=== PATIENT | female | born 1970 | race Caucasian/White ===

== ENCOUNTER 2016-12-26 10:57 | Emergency (ER) | payer MEDICAID, OTHER ==
[~2016-12-26] VITALS: Ht 170.2 cm; Wt 109.0 kg
[~2016-12-26 10:57] MED LIST: METFORMIN; PRAVASTATIN
[2016-12-26 11:11] VITALS: Ht 170.2 cm; Wt 109.0 kg
[2016-12-26] MEDS ORDERED: KETOROLAC 60 MG INJ IM STA (11:43)
--- NOTE | 2016-12-26 13:30 | RADRPT ---
PROCEDURE: Chest x-ray CLINICAL INDICATION: Back pain TECHNIQUE: Chest single view COMPARISON: None FINDINGS: The heart is normal in size. The pulmonary vessels are normal in caliber. The lungs are clear. Th e costophrenic angles are sharp. The visualized bony thorax is unremarkable. IMPRESSION: No acute cardiopulmonary disease. RPTAT: HH .Dexter Amaro MD, Date Time Electronically viewed and signed by .Dexter Amaro MD, MD on 12/26/2016 13:30 .W/
[2016-12-26] MEDS ORDERED: SOD CHLORIDE 0.9% 1,000 ML IV STA (13:35)
[2016-12-26] MEDS ORDERED: SOD CHLORIDE 0.9% 1,000 ML IV ONE (16:00)
[2016-12-26] MEDS ORDERED: INSULIN LISPRO 100 UNIT/ML VIAL SC STA (17:34)
[2016-12-26] MEDS ORDERED: NAPR-260 PO (17:39)
[2016-12-26] MEDS ORDERED: CYCL-319 PO (17:39)
--- NOTE | 2016-12-26 17:53 | ERD ---
ER Documentation Chief Complaint Chief Complaint upper back pain x 2 years HPI 46 year old patient reports that she has been diagnosed with tendinitis and diabetes presents to the ED complaining of left upper back pain that started intermittently for the past 3 years. States that he has worse in the last 15 days. States that she has tried taking tramadol without relief of her symptoms. Reports that she does not take metformin every day. Denies any dysuria, urgency, frequency, nausea, vomiting, abdominal pain, chest pain, shortness of breath, polyuria, polydipsia. States that she has had a previous cholecystectomy and thyroidectomy. ROS All systems reviewed and are negative except as per history of present illness. Medications Home Meds Active Scripts Cyclobenzaprine Hcl* (Cyclobenzaprine Hcl*) 10 Mg Tablet, 10 MG PO TID, #12 TAB Prov:GINNA BHANDARI PA-C 12/26/16 Naproxen* (Naprosyn*) 500 Mg Tablet, 500 MG PO BID Y for PAIN AND/OR INFLAMMATION, #30 TAB Prov:GINNA BHANDARI PA-C 12/26/16 Reported Medications [Metformin] No Conflict Check 09/16/15 [Pravastatin] No Conflict Check 09/16/15 Allergies Allergies: Coded Allergies: No Known Allergy (Unverified , 12/26/16) PMhx/Soc History of Surgery: Yes () Anesthesia Reaction: No Hx Neurological Disorder: No Hx Respiratory Disorders: No Hx Cardiac Disorders: Yes (HYPERLIPIDEMIA) Hx Psychiatric Problems: No Hx Miscellaneous Medical Probl: No Hx Alcohol Use: No Hx Substance Use: No Hx Tobacco Use: No Smoking Status: Never smoker Physical Exam Vitals Vital Signs Date Time Temp Pulse Resp B/P Pulse Ox O2 Delivery O2 Flow Rate FiO2 12/26/16 11:11 98.3 101 20 158/82 98 Physical Exam Const: [id number], well-nourished. In no acute distress. Head: Atraumatic, normocephalic Eyes: Normal Conjunctiva without injection. No purulent discharge. ENT: Normal external ear, nose. Moist oropharynx without tonsillar exudates. Non -erythematous pharynx. Uvula midline. No drooling. No trismus. Neck: No cervical midline tenderness. Full range of motion. No meningismus. No cervical lymphadenopathy. No JVD. Resp: Clear to auscultation bilaterally. No wheezing, rhonchi, rales, or crackles. No accessory muscle use. No retractions. Cardio: Regular rate and rhythm. No murmurs, rubs or gallops. Abd: Soft, nontender, non distended. Normal bowel sounds. No palpable masses. No rebound tenderness. No guarding. Negative McBurney's point. Negative psoas sign. Negative obturator sign. Skin: No petechiae or rashes Back: No midline tenderness. No CVA tenderness. Numbness to palpation of the trapezius muscles of the left upper back. Ext: No cyanosis, or edema. Neur: Awake and alert. Normal gait. Normal coordination. Psych: Normal Mood and Affect Results 24 hrs Laboratory Tests Test 12/26/16 12:00 12/26/16 13:30 12/26/16 14:00 12/26/16 17:20 Urine Color YELLOW Urine Clarity CLEAR Urine pH 6.0 Urine Specific [place] 1.035 Urine Ketones 1+mg/dL Urine Nitrite NEGATIVEmg/dL Urine Bilirubin NEGATIVEmg/dL Urine Urobilinogen NEGATIVEmg/dL Urine Leukocyte Esterase NEGATIVELeu/ul Urine Hemoglobin NEGATIVEmg/dL Urine Glucose 3+mg/dL Urine Total Protein NEGATIVEmg/dl Bedside Glucose 349mg/dL 304mg/dL White Blood Count 9.810^3/ul Red Blood Count 4.7610^6/ul Hemoglobin 14.1g/dl Hematocrit 41.1% Mean Corpuscular Volume 86.3fl Mean Corpuscular Hemoglobin 29.6pg Mean Corpuscular Hemoglobin Concent 34.3g/dl Red Cell Distribution Width 13.4% Platelet Count 72337^3/UL Mean Platelet Volume 10.7fl Neutrophils % 61.7% Lymphocytes % 31.0% Monocytes % 5.4% Eosinophils % 1.1% Basophils % 0.5% Nucleated Red Blood Cells % 0.0/100WBC Neutrophils # 6.110^3/ul Lymphocytes # 3.010^3/ul Monocytes # 0.510^3/ul Eosinophils # 0.110^3/ul Basophils # 0.110^3/ul Nucleated Red Blood Cells # 0.010^3/ul Sodium Level 133mmol/L Potassium Level 4.9mmol/L Chloride Level 101mmol/L Carbon Dioxide Level 17mmol/L Anion Gap 20 Blood Urea Nitrogen 16mg/dl Creatinine 0.87mg/dl Glucose Level 360mg/dl Calcium Level 9.9mg/dl Total Bilirubin 0.3mg/dl Direct Bilirubin 0.00mg/dl Indirect Bilirubin 0.3mg/dl Aspartate Amino Transf (AST/SGOT) 40IU/L Alanine Aminotransferase (ALT/SGPT) 28IU/L Alkaline Phosphatase 107IU/L Total Protein 7.8g/dl Albumin 4.0g/dl Globulin 3.80g/dl Albumin/Globulin Ratio 1.05 Lipase 70U/L Test 12/26/16 18:04 Bedside Glucose 289mg/dL Current Medications Medications (Trade) Dose Ordered Sig/Uche Route PRN Reason Start Time Stop Time Status Last Admin Dose Admin Ketorolac Tromethamine 60 mg 60 mg ONCE STAT IM 12/26/16 11:43 12/26/16 11:46 DC 12/26/16 12:03 Sodium Chloride 1,000 ml @ 1,000 mls/hr Q1H STAT IV 12/26/16 13:35 12/26/16 14:34 DC 12/26/16 13:53 Sodium Chloride (NS) 1,000 ml @ 1,000 mls/hr Q1H ONCE IV 12/26/16 16:00 12/26/16 16:59 DC 12/26/16 15:57 Insulin Human Lispro (Humalog) 5 unit ONCE STAT SC 12/26/16 17:34 12/26/16 17:36 DC 12/26/16 17:50 Procedures/MDM 46-year-old female patient with a past medical history of diabetes presents to the ED complaining of left upper back pain that started intermittently for 3 years. Patient is afebrile nontoxic appearing. Urinalysis shows 1+ leukocyte esterase, 3+ glucose. Urine negative. Patient has an Accu-Chek of 348. Patient was further worked up with CBC, CMP, lipase. Patient's pain and symptoms have improved after treatment with 2 L normal saline, 5 units of subcutaneous Humalog insulin. CBC: No leukocytosis. No e/o of systemic infection. No e/o anemia. CMP: No e/o severe acidosis, alkalosis, renal failure, diabetic ketoacidosis, liver disease Lipase within normal limits. Urine: No leukocyte esterase, no nitrites, no hematuria. Urine : negative Accucheck: 349 to 289 after fluids and humalog. PROCEDURE: Chest x-ray CLINICAL INDICATION: Back pain TECHNIQUE: Chest single view COMPARISON: None FINDINGS: The heart is normal in size. The pulmonary vessels are normal in caliber. The lungs are clear. The costophrenic angles are sharp. The visualized bony thorax is unremarkable. IMPRESSION: No acute cardiopulmonary disease. Patient likely is experiencing her musculoskeletal pain and tendonitis. Low suspicion for ectopic , ovarian torsion, gastritis, GERD, peptic ulcer disease, cholecystitis, choledocholithiasis, cholangitis, pancreatitis, appendicitis, atypical [place], pneumonia, pneumothorax, fractures, dislocations, pleural effusion, bowel obstruction, ileus, volvulus, nephrolithiasis, pyelonephritis, hepatitis, perforated viscus, diverticulitis, strangulated/ incarcerated hernia, DKA, acute abdomen, mesenteric ischemia or other emergent conditions. This case was discussed with Dr. Crowder who agreed with the management and discharge plan. Discharge medications: Flexeril, Naproxen Follow up with primary care physician in 1-2 days for referral to side framer. Instructed patient to return to the ED sooner for any worsening symptoms. Patient's questions were answered. Patient understood and agreed with discharge plan. Patient discharged stable. Departure Diagnosis: Primary Impression: Back pain Back pain location: back pain in unspecified location Chronicity: unspecified Back pain laterality: unspecified Qualified Code: M54.9 - Back pain, unspecified back location, unspecified back pain laterality, unspecified chronicity Condition: Stable Patient Instructions: Back Pain (Acute Or Chronic), DIABETES, General Info, Diabetic Hyperglycemia Referrals: SUSHMA ORDAZ MD (PCP) [facility]) Usted se pandya hecho un examen mdico de control que le indica que no est en susan condicin que requiera tratamiento urgente en el Departamento de Emergencia. Un estudio ms profundo y el tratamiento de troy condicin pueden esperar sin ningn riesgo hasta que usted sea atendida/o en el consultorio de troy mdico o susan cl jonathan. Es responsabilidad suya arreglar susan wendy para el seguimiento del samantha. MANEJO DE CONDICIONES NO URGENTES EN EL FUTURO 1) Si usted tiene un mdico de atencin primaria: Usted debera llamar a troy mdico de atencin primaria antes de venir al departamento de emergencia. Despus de las horas de consultorio, troy doctor o troy asociado/a est disponible por telfono. El mdico o enfermero de zack en el servicio telefnico puede asesorarle por rachel medio para atender el problema, o samantha contrario se puede programar susan wendy. 2) Si usted no tiene un mdico de atencin primaria: Llame al mdico o clnica de referencia que aparece abajo speedy las horas de consultorio para hacer susan wendy para que le vean. CLINICAS: [facility] [phone] [address] [facility] [phone] [facility] [phone] [address] [facility]. [facility] [phone] [address] [facility]. [facility] [phone] [address] [facility] [phone] [address] [facility]. [facility] () Usted se pandya hecho un examen mdico de control que le indica que no est en susan condicin que requiera tratamiento urgente en el Departamento de Emergencia. Un estudio ms profundo y el tratamiento de troy condicin pueden esperar sin ningn riesgo hasta que usted sea atendida/o en el consultorio de troy mdico o susan cl jonathan. Es responsabilidad suya arreglar susan wendy para el seguimiento del samantha. MANEJO DE CONDICIONES NO URGENTES EN EL FUTURO 1) Si usted tiene un mdico de atencin primaria: Usted debera llamar a troy mdico de atencin primaria antes de venir al departamento de emergencia. Despus de las horas de consultorio, troy doctor o troy asociado/a est disponible por telfono. El mdico o enfermero de zack en el servicio telefnico puede asesorarle por rachel medio para atender el problema, o samantha contrario se puede programar susan wendy. 2) Si usted no tiene un mdico de atencin primaria: Llame al mdico o condado institucions de referencia que aparece abajo speedy las horas de consultorio para hacer susan wendy para que le vean. SI USTED NO PUEDE PAGAR PARA CRISTINO UN MEDICO puede ir a: [facility] [address] [place] [address] [facility] [address] [place] [address] [facility] [address] [place] [address] PARA [facility] [address] [place], [place] [id number] Additional Instructions: Llame al doctor MAANA y columba susan WENDY PARA DENTRO DE 2-3 MIRELES.Dgale a la secretaria que nosotros le instruimos hacer esta wendy.Avise o llame si troy condicin se empeora antes de la wendy. Regresa aqui si peor o no mejor. GINNA BHANDARI PA-C Dec 26, 2016 17:53
--- NOTE | 2016-12-26 17:53 | ERD ---
ER Documentation Chief Complaint Chief Complaint upper back pain x 2 years HPI 46 year old patient reports that she has been diagnosed with tendinitis and diabetes presents to the ED complaining of left upper back pain that started intermittently for the past 3 years. States that he has worse in the last 15 days. States that she has tried taking tramadol without relief of her symptoms. Reports that she does not take metformin every day. Denies any dysuria, urgency, frequency, nausea, vomiting, abdominal pain, chest pain, shortness of breath, polyuria, polydipsia. States that she has had a previous cholecystectomy and thyroidectomy. ROS All systems reviewed and are negative except as per history of present illness. Medications Home Meds Active Scripts Cyclobenzaprine Hcl* (Cyclobenzaprine Hcl*) 10 Mg Tablet, 10 MG PO TID, #12 TAB Prov:GINNA BHANDARI PA-C 12/26/16 Naproxen* (Naprosyn*) 500 Mg Tablet, 500 MG PO BID Y for PAIN AND/OR INFLAMMATION, #30 TAB Prov:GINNA BHANDARI PA-C 12/26/16 Reported Medications [Metformin] No Conflict Check 09/16/15 [Pravastatin] No Conflict Check 09/16/15 Allergies Allergies: Coded Allergies: No Known Allergy (Unverified , 12/26/16) PMhx/Soc History of Surgery: Yes () Anesthesia Reaction: No Hx Neurological Disorder: No Hx Respiratory Disorders: No Hx Cardiac Disorders: Yes (HYPERLIPIDEMIA) Hx Psychiatric Problems: No Hx Miscellaneous Medical Probl: No Hx Alcohol Use: No Hx Substance Use: No Hx Tobacco Use: No Smoking Status: Never smoker Physical Exam Vitals Vital Signs Date Time Temp Pulse Resp B/P Pulse Ox O2 Delivery O2 Flow Rate FiO2 12/26/16 11:11 98.3 101 20 158/82 98 Physical Exam Const: [id number], well-nourished. In no acute distress. Head: Atraumatic, normocephalic Eyes: Normal Conjunctiva without injection. No purulent discharge. ENT: Normal external ear, nose. Moist oropharynx without tonsillar exudates. Non -erythematous pharynx. Uvula midline. No drooling. No trismus. Neck: No cervical midline tenderness. Full range of motion. No meningismus. No cervical lymphadenopathy. No JVD. Resp: Clear to auscultation bilaterally. No wheezing, rhonchi, rales, or crackles. No accessory muscle use. No retractions. Cardio: Regular rate and rhythm. No murmurs, rubs or gallops. Abd: Soft, nontender, non distended. Normal bowel sounds. No palpable masses. No rebound tenderness. No guarding. Negative McBurney's point. Negative psoas sign. Negative obturator sign. Skin: No petechiae or rashes Back: No midline tenderness. No CVA tenderness. Numbness to palpation of the trapezius muscles of the left upper back. Ext: No cyanosis, or edema. Neur: Awake and alert. Normal gait. Normal coordination. Psych: Normal Mood and Affect Results 24 hrs Laboratory Tests Test 12/26/16 12:00 12/26/16 13:30 12/26/16 14:00 12/26/16 17:20 Urine Color YELLOW Urine Clarity CLEAR Urine pH 6.0 Urine Specific [place] 1.035 Urine Ketones 1+mg/dL Urine Nitrite NEGATIVEmg/dL Urine Bilirubin NEGATIVEmg/dL Urine Urobilinogen NEGATIVEmg/dL Urine Leukocyte Esterase NEGATIVELeu/ul Urine Hemoglobin NEGATIVEmg/dL Urine Glucose 3+mg/dL Urine Total Protein NEGATIVEmg/dl Bedside Glucose 349mg/dL 304mg/dL White Blood Count 9.810^3/ul Red Blood Count 4.7610^6/ul Hemoglobin 14.1g/dl Hematocrit 41.1% Mean Corpuscular Volume 86.3fl Mean Corpuscular Hemoglobin 29.6pg Mean Corpuscular Hemoglobin Concent 34.3g/dl Red Cell Distribution Width 13.4% Platelet Count 73565^3/UL Mean Platelet Volume 10.7fl Neutrophils % 61.7% Lymphocytes % 31.0% Monocytes % 5.4% Eosinophils % 1.1% Basophils % 0.5% Nucleated Red Blood Cells % 0.0/100WBC Neutrophils # 6.110^3/ul Lymphocytes # 3.010^3/ul Monocytes # 0.510^3/ul Eosinophils # 0.110^3/ul Basophils # 0.110^3/ul Nucleated Red Blood Cells # 0.010^3/ul Sodium Level 133mmol/L Potassium Level 4.9mmol/L Chloride Level 101mmol/L Carbon Dioxide Level 17mmol/L Anion Gap 20 Blood Urea Nitrogen 16mg/dl Creatinine 0.87mg/dl Glucose Level 360mg/dl Calcium Level 9.9mg/dl Total Bilirubin 0.3mg/dl Direct Bilirubin 0.00mg/dl Indirect Bilirubin 0.3mg/dl Aspartate Amino Transf (AST/SGOT) 40IU/L Alanine Aminotransferase (ALT/SGPT) 28IU/L Alkaline Phosphatase 107IU/L Total Protein 7.8g/dl Albumin 4.0g/dl Globulin 3.80g/dl Albumin/Globulin Ratio 1.05 Lipase 70U/L Test 12/26/16 18:04 Bedside Glucose 289mg/dL Current Medications Medications (Trade) Dose Ordered Sig/Uche Route PRN Reason Start Time Stop Time Status Last Admin Dose Admin Ketorolac Tromethamine 60 mg 60 mg ONCE STAT IM 12/26/16 11:43 12/26/16 11:46 DC 12/26/16 12:03 Sodium Chloride 1,000 ml @ 1,000 mls/hr Q1H STAT IV 12/26/16 13:35 12/26/16 14:34 DC 12/26/16 13:53 Sodium Chloride (NS) 1,000 ml @ 1,000 mls/hr Q1H ONCE IV 12/26/16 16:00 12/26/16 16:59 DC 12/26/16 15:57 Insulin Human Lispro (Humalog) 5 unit ONCE STAT SC 12/26/16 17:34 12/26/16 17:36 DC 12/26/16 17:50 Procedures/MDM 46-year-old female patient with a past medical history of diabetes presents to the ED complaining of left upper back pain that started intermittently for 3 years. Patient is afebrile nontoxic appearing. Urinalysis shows 1+ leukocyte esterase, 3+ glucose. Urine negative. Patient has an Accu-Chek of 348. Patient was further worked up with CBC, CMP, lipase. Patient's pain and symptoms have improved after treatment with 2 L normal saline, 5 units of subcutaneous Humalog insulin. CBC: No leukocytosis. No e/o of systemic infection. No e/o anemia. CMP: No e/o severe acidosis, alkalosis, renal failure, diabetic ketoacidosis, liver disease Lipase within normal limits. Urine: No leukocyte esterase, no nitrites, no hematuria. Urine : negative Accucheck: 349 to 289 after fluids and humalog. PROCEDURE: Chest x-ray CLINICAL INDICATION: Back pain TECHNIQUE: Chest single view COMPARISON: None FINDINGS: The heart is normal in size. The pulmonary vessels are normal in caliber. The lungs are clear. The costophrenic angles are sharp. The visualized bony thorax is unremarkable. IMPRESSION: No acute cardiopulmonary disease. Patient likely is experiencing her musculoskeletal pain and tendonitis. Low suspicion for ectopic , ovarian torsion, gastritis, GERD, peptic ulcer disease, cholecystitis, choledocholithiasis, cholangitis, pancreatitis, appendicitis, atypical [place], pneumonia, pneumothorax, fractures, dislocations, pleural effusion, bowel obstruction, ileus, volvulus, nephrolithiasis, pyelonephritis, hepatitis, perforated viscus, diverticulitis, strangulated/ incarcerated hernia, DKA, acute abdomen, mesenteric ischemia or other emergent conditions. This case was discussed with Dr. Crowder who agreed with the management and discharge plan. Discharge medications: Flexeril, Naproxen Follow up with primary care physician in 1-2 days for referral to metal dealer. Instructed patient to return to the ED sooner for any worsening symptoms. Patient's questions were answered. Patient understood and agreed with discharge plan. Patient discharged stable. Departure Diagnosis: Primary Impression: Back pain Back pain location: back pain in unspecified location Chronicity: unspecified Back pain laterality: unspecified Qualified Code: M54.9 - Back pain, unspecified back location, unspecified back pain laterality, unspecified chronicity Condition: Stable Patient Instructions: Back Pain (Acute Or Chronic), DIABETES, General Info, Diabetic Hyperglycemia Referrals: SUSHMA ORDAZ MD (PCP) [facility]) Usted se pandya hecho un examen mdico de control que le indica que no est en susan condicin que requiera tratamiento urgente en el Departamento de Emergencia. Un estudio ms profundo y el tratamiento de troy condicin pueden esperar sin ningn riesgo hasta que usted sea atendida/o en el consultorio de troy mdico o susan cl jonathan. Es responsabilidad suya arreglar susan wendy para el seguimiento del samantha. MANEJO DE CONDICIONES NO URGENTES EN EL FUTURO 1) Si usted tiene un mdico de atencin primaria: Usted debera llamar a troy mdico de atencin primaria antes de venir al departamento de emergencia. Despus de las horas de consultorio, troy doctor o troy asociado/a est disponible por telfono. El mdico o enfermero de zack en el servicio telefnico puede asesorarle por rachel medio para atender el problema, o samantha contrario se puede programar susan wendy. 2) Si usted no tiene un mdico de atencin primaria: Llame al mdico o clnica de referencia que aparece abajo speedy las horas de consultorio para hacer susan wendy para que le vean. CLINICAS: [facility] [phone] [address] [facility] [phone] [facility] [phone] [address] [facility]. [facility] [phone] [address] [facility]. [facility] [phone] [address] [facility] [phone] [address] [facility]. [facility] () Usted se pandya hecho un examen mdico de control que le indica que no est en susan condicin que requiera tratamiento urgente en el Departamento de Emergencia. Un estudio ms profundo y el tratamiento de troy condicin pueden esperar sin ningn riesgo hasta que usted sea atendida/o en el consultorio de troy mdico o susan cl jonathan. Es responsabilidad suya arreglar susan wendy para el seguimiento del samantha. MANEJO DE CONDICIONES NO URGENTES EN EL FUTURO 1) Si usted tiene un mdico de atencin primaria: Usted debera llamar a troy mdico de atencin primaria antes de venir al departamento de emergencia. Despus de las horas de consultorio, troy doctor o troy asociado/a est disponible por telfono. El mdico o enfermero de zack en el servicio telefnico puede asesorarle por rachel medio para atender el problema, o samantha contrario se puede programar susan wendy. 2) Si usted no tiene un mdico de atencin primaria: Llame al mdico o condado institucions de referencia que aparece abajo speedy las horas de consultorio para hacer susan wendy para que le vean. SI USTED NO PUEDE PAGAR PARA CRISTINO UN MEDICO puede ir a: [facility] [address] [place] [address] [facility] [address] [place] [address] [facility] [address] [place] [address] PARA [facility] [address] [place], [place] [id number] Additional Instructions: Llame al doctor MAANA y columba susan WENDY PARA DENTRO DE 2-3 MIRELES.Dgale a la secretaria que nosotros le instruimos hacer esta wendy.Avise o llame si troy condicin se empeora antes de la wendy. Regresa aqui si peor o no mejor. GINNA BHANDARI PA-C Dec 26, 2016 17:53
--- NOTE | 2016-12-26 17:53 | ERD ---
ER Documentation Chief Complaint Chief Complaint upper back pain x 2 years HPI 46 year old patient reports that she has been diagnosed with tendinitis and diabetes presents to the ED complaining of left upper back pain that started intermittently for the past 3 years. States that he has worse in the last 15 days. States that she has tried taking tramadol without relief of her symptoms. Reports that she does not take metformin every day. Denies any dysuria, urgency, frequency, nausea, vomiting, abdominal pain, chest pain, shortness of breath, polyuria, polydipsia. States that she has had a previous cholecystectomy and thyroidectomy. ROS All systems reviewed and are negative except as per history of present illness. Medications Home Meds Active Scripts Cyclobenzaprine Hcl* (Cyclobenzaprine Hcl*) 10 Mg Tablet, 10 MG PO TID, #12 TAB Prov:GINNA BHANDARI PA-C 12/26/16 Naproxen* (Naprosyn*) 500 Mg Tablet, 500 MG PO BID Y for PAIN AND/OR INFLAMMATION, #30 TAB Prov:GINNA BHANDARI PA-C 12/26/16 Reported Medications [Metformin] No Conflict Check 09/16/15 [Pravastatin] No Conflict Check 09/16/15 Allergies Allergies: Coded Allergies: No Known Allergy (Unverified , 12/26/16) PMhx/Soc History of Surgery: Yes () Anesthesia Reaction: No Hx Neurological Disorder: No Hx Respiratory Disorders: No Hx Cardiac Disorders: Yes (HYPERLIPIDEMIA) Hx Psychiatric Problems: No Hx Miscellaneous Medical Probl: No Hx Alcohol Use: No Hx Substance Use: No Hx Tobacco Use: No Smoking Status: Never smoker Physical Exam Vitals Vital Signs Date Time Temp Pulse Resp B/P Pulse Ox O2 Delivery O2 Flow Rate FiO2 12/26/16 11:11 98.3 101 20 158/82 98 Physical Exam Const: [id number], well-nourished. In no acute distress. Head: Atraumatic, normocephalic Eyes: Normal Conjunctiva without injection. No purulent discharge. ENT: Normal external ear, nose. Moist oropharynx without tonsillar exudates. Non -erythematous pharynx. Uvula midline. No drooling. No trismus. Neck: No cervical midline tenderness. Full range of motion. No meningismus. No cervical lymphadenopathy. No JVD. Resp: Clear to auscultation bilaterally. No wheezing, rhonchi, rales, or crackles. No accessory muscle use. No retractions. Cardio: Regular rate and rhythm. No murmurs, rubs or gallops. Abd: Soft, nontender, non distended. Normal bowel sounds. No palpable masses. No rebound tenderness. No guarding. Negative McBurney's point. Negative psoas sign. Negative obturator sign. Skin: No petechiae or rashes Back: No midline tenderness. No CVA tenderness. Numbness to palpation of the trapezius muscles of the left upper back. Ext: No cyanosis, or edema. Neur: Awake and alert. Normal gait. Normal coordination. Psych: Normal Mood and Affect Results 24 hrs Laboratory Tests Test 12/26/16 12:00 12/26/16 13:30 12/26/16 14:00 12/26/16 17:20 Urine Color YELLOW Urine Clarity CLEAR Urine pH 6.0 Urine Specific [place] 1.035 Urine Ketones 1+mg/dL Urine Nitrite NEGATIVEmg/dL Urine Bilirubin NEGATIVEmg/dL Urine Urobilinogen NEGATIVEmg/dL Urine Leukocyte Esterase NEGATIVELeu/ul Urine Hemoglobin NEGATIVEmg/dL Urine Glucose 3+mg/dL Urine Total Protein NEGATIVEmg/dl Bedside Glucose 349mg/dL 304mg/dL White Blood Count 9.810^3/ul Red Blood Count 4.7610^6/ul Hemoglobin 14.1g/dl Hematocrit 41.1% Mean Corpuscular Volume 86.3fl Mean Corpuscular Hemoglobin 29.6pg Mean Corpuscular Hemoglobin Concent 34.3g/dl Red Cell Distribution Width 13.4% Platelet Count 12584^3/UL Mean Platelet Volume 10.7fl Neutrophils % 61.7% Lymphocytes % 31.0% Monocytes % 5.4% Eosinophils % 1.1% Basophils % 0.5% Nucleated Red Blood Cells % 0.0/100WBC Neutrophils # 6.110^3/ul Lymphocytes # 3.010^3/ul Monocytes # 0.510^3/ul Eosinophils # 0.110^3/ul Basophils # 0.110^3/ul Nucleated Red Blood Cells # 0.010^3/ul Sodium Level 133mmol/L Potassium Level 4.9mmol/L Chloride Level 101mmol/L Carbon Dioxide Level 17mmol/L Anion Gap 20 Blood Urea Nitrogen 16mg/dl Creatinine 0.87mg/dl Glucose Level 360mg/dl Calcium Level 9.9mg/dl Total Bilirubin 0.3mg/dl Direct Bilirubin 0.00mg/dl Indirect Bilirubin 0.3mg/dl Aspartate Amino Transf (AST/SGOT) 40IU/L Alanine Aminotransferase (ALT/SGPT) 28IU/L Alkaline Phosphatase 107IU/L Total Protein 7.8g/dl Albumin 4.0g/dl Globulin 3.80g/dl Albumin/Globulin Ratio 1.05 Lipase 70U/L Test 12/26/16 18:04 Bedside Glucose 289mg/dL Current Medications Medications (Trade) Dose Ordered Sig/Uche Route PRN Reason Start Time Stop Time Status Last Admin Dose Admin Ketorolac Tromethamine 60 mg 60 mg ONCE STAT IM 12/26/16 11:43 12/26/16 11:46 DC 12/26/16 12:03 Sodium Chloride 1,000 ml @ 1,000 mls/hr Q1H STAT IV 12/26/16 13:35 12/26/16 14:34 DC 12/26/16 13:53 Sodium Chloride (NS) 1,000 ml @ 1,000 mls/hr Q1H ONCE IV 12/26/16 16:00 12/26/16 16:59 DC 12/26/16 15:57 Insulin Human Lispro (Humalog) 5 unit ONCE STAT SC 12/26/16 17:34 12/26/16 17:36 DC 12/26/16 17:50 Procedures/MDM 46-year-old female patient with a past medical history of diabetes presents to the ED complaining of left upper back pain that started intermittently for 3 years. Patient is afebrile nontoxic appearing. Urinalysis shows 1+ leukocyte esterase, 3+ glucose. Urine negative. Patient has an Accu-Chek of 348. Patient was further worked up with CBC, CMP, lipase. Patient's pain and symptoms have improved after treatment with 2 L normal saline, 5 units of subcutaneous Humalog insulin. CBC: No leukocytosis. No e/o of systemic infection. No e/o anemia. CMP: No e/o severe acidosis, alkalosis, renal failure, diabetic ketoacidosis, liver disease Lipase within normal limits. Urine: No leukocyte esterase, no nitrites, no hematuria. Urine : negative Accucheck: 349 to 289 after fluids and humalog. PROCEDURE: Chest x-ray CLINICAL INDICATION: Back pain TECHNIQUE: Chest single view COMPARISON: None FINDINGS: The heart is normal in size. The pulmonary vessels are normal in caliber. The lungs are clear. The costophrenic angles are sharp. The visualized bony thorax is unremarkable. IMPRESSION: No acute cardiopulmonary disease. Patient likely is experiencing her musculoskeletal pain and tendonitis. Low suspicion for ectopic , ovarian torsion, gastritis, GERD, peptic ulcer disease, cholecystitis, choledocholithiasis, cholangitis, pancreatitis, appendicitis, atypical ID, pneumonia, pneumothorax, fractures, dislocations, pleural effusion, bowel obstruction, ileus, volvulus, nephrolithiasis, pyelonephritis, hepatitis, perforated viscus, diverticulitis, strangulated/ incarcerated hernia, DKA, acute abdomen, mesenteric ischemia or other emergent conditions. This case was discussed with Dr. Crowder who agreed with the management and discharge plan. Discharge medications: Flexeril, Naproxen Follow up with primary care physician in 1-2 days for referral to dietitian teaching. Instructed patient to return to the ED sooner for any worsening symptoms. Patient's questions were answered. Patient understood and agreed with discharge plan. Patient discharged stable. Departure Diagnosis: Primary Impression: Back pain Back pain location: back pain in unspecified location Chronicity: unspecified Back pain laterality: unspecified Qualified Code: M54.9 - Back pain, unspecified back location, unspecified back pain laterality, unspecified chronicity Condition: Stable Patient Instructions: Back Pain (Acute Or Chronic), DIABETES, General Info, Diabetic Hyperglycemia Referrals: SUSHMA ORDAZ MD (PCP) [facility] Usted se pandya hecho un examen mdico de control que le indica que no est en susan condicin que requiera tratamiento urgente en el Departamento de Emergencia. Un estudio ms profundo y el tratamiento de troy condicin pueden esperar sin ningn riesgo hasta que usted sea atendida/o en el consultorio de troy mdico o susan cl jonathan. Es responsabilidad suya arreglar susan wendy para el seguimiento del samantha. MANEJO DE CONDICIONES NO URGENTES EN EL FUTURO 1) Si usted tiene un mdico de atencin primaria: Usted debera llamar a troy mdico de atencin primaria antes de venir al departamento de emergencia. Despus de las horas de consultorio, troy doctor o troy asociado/a est disponible por telfono. El mdico o enfermero de zack en el servicio telefnico puede asesorarle por rachel medio para atender el problema, o samantha contrario se puede programar susan wendy. 2) Si usted no tiene un mdico de atencin primaria: Llame al mdico o clnica de referencia que aparece abajo speedy las horas de consultorio para hacer susan wendy para que le vean. CLINICAS: [facility] [id number] [facility] [phone] [facility] [phone] [address] [facility]. [facility] [phone] [address] [facility] [facility] [phone] [address] [facility] [phone] [address] [facility]. [facility] () Usted se pandya hecho un examen mdico de control que le indica que no est en susan condicin que requiera tratamiento urgente en el Departamento de Emergencia. Un estudio ms profundo y el tratamiento de troy condicin pueden esperar sin ningn riesgo hasta que usted sea atendida/o en el consultorio de troy mdico o susan cl jonathan. Es responsabilidad suya arreglar susan wendy para el seguimiento del samantha. MANEJO DE CONDICIONES NO URGENTES EN EL FUTURO 1) Si usted tiene un mdico de atencin primaria: Usted debera llamar a troy mdico de atencin primaria antes de venir al departamento de emergencia. Despus de las horas de consultorio, troy doctor o troy asociado/a est disponible por telfono. El mdico o enfermero de zack en el servicio telefnico puede asesorarle por rachel medio para atender el problema, o samantha contrario se puede programar susan wendy. 2) Si usted no tiene un mdico de atencin primaria: Llame al mdico o condado institucions de referencia que aparece abajo speedy las horas de consultorio para hacer susan wendy para que le vean. SI USTED NO PUEDE PAGAR PARA CRISTINO UN MEDICO puede ir a: [facility] [address] [place] [address] [facility] [address] [place] [address] [facility] [address] [place] [address] [address]A [facility] [address] [place], [place] [id number] Additional Instructions: Llame al doctor MAANA y columba susan WENDY PARA DENTRO DE 2-3 MIRELES.Dgale a la secretaria que nosotros le instruimos hacer esta wendy.Avise o llame si troy condicin se empeora antes de la wendy. Regresa aqui si peor o no mejor. GINNA BHANDARI PA-C Dec 26, 2016 17:53
[2016-12-26 18:14] VITALS: BP 128/68; PULSE 77; RESP 14
== END 2016-12-26 18:15 | disposition home or self-care (01) ==
LOC: FTE 10:57
DX: M54.6 Pain in thoracic spine (principal)
CPT/HCPCS: 36415; 71010; 80053; 81003; 82962; 83690; 85025; 96372; J1815; J1885; J7030; Z7502

== ENCOUNTER 2017-06-26 23:12 | Emergency (ER) | END 2017-06-27 02:30 | disposition left against medical advice (07) ==

== ENCOUNTER 2018-02-13 19:21 | Emergency (ER) | END 2018-02-13 22:19 | disposition home or self-care (01) ==